=== PATIENT | female | born 1965 | race Caucasian/White ===

== ENCOUNTER 2019-02-16 08:11 | Day surgery (SDC) | payer BC ==
[2019-02-15 16:09] VITALS: BMI 19.1
[2019-02-16] VITALS (11 sets, daily range): BP systolic 118–135; BP diastolic 73–94; PULSE 64–82; RESP 11–20; Ht 157.5 cm; Wt 49.8 kg
[~2019-02-16] VITALS: Ht 157.5 cm; Wt 49.8 kg
[2019-02-16] MEDS ORDERED: SOD CHLORIDE 0.9% 1,000 ML IV SCH (10:00)
[2019-02-16] MEDS ORDERED: PROPOFOL 20 ML ONE (10:45)
[2019-02-16] MEDS ORDERED: LIDOCAINE 2% (SDV) 5 ML INJ ONE (10:45)
[2019-02-16] MEDS ORDERED: MEPERIDINE 100 MG INJ ONE (10:45)
[2019-02-16] MEDS ORDERED: CEFAZOLIN 1 GM INJ ONE (10:45)
[2019-02-16] MEDS ORDERED: METOCLOPRAMIDE 10 MG INJ ONE (10:45)
[2019-02-16] MEDS ORDERED: ONDANSETRON 4 MG INJ ONE (10:45)
[2019-02-16] MEDS ORDERED: BUPIVACAINE 0.25%/EPI (SDV) 10 ML INJ ONE (10:46)
[2019-02-16] MEDS ORDERED: HYDROCODONE/APAP (5/325) TAB PO PRN (11:00)
[2019-02-16] MEDS ORDERED: morphine 2 MG INJ IV PRN (11:00)
[2019-02-16] MEDS ORDERED: ACETAMINOPHEN 325 MG TAB PO PRN (11:00)
[2019-02-16] MEDS ORDERED: ONDANSETRON 4 MG INJ IV PRN ×2 (11:00→12:00)
[2019-02-16] MEDS ORDERED: OXYCODONE/ACETAMINOPHEN (5/325) TAB PO PRN ×2 (12:00)
[2019-02-16] MEDS ORDERED: FENTAnyl 50 MCG/ML VIAL IV PRN ×3 (12:00)
[2019-02-16] MEDS ORDERED: DIPHENHYDRAMINE 50 MG INJ IV PRN (12:00)
[2019-02-16] MEDS ORDERED: METOCLOPRAMIDE 10 MG INJ IV PRN (12:00)
[2019-02-16] MEDS ORDERED: MIDAZOLAM 1 MG/ML 2 ML INJ IV PRN (12:00)
[2019-02-16] MEDS ORDERED: HYDROmorphONE 1 MG/5 ML IV SYRINGE IV PRN ×3 (12:00)
[2019-02-16] MEDS ORDERED: MEPERIDINE 25 MG INJ IV PRN (12:00)
[2019-02-16] MEDS ORDERED: BACITRACIN/POLYMYXIN 28.35 GM OINT TOP ONE (12:21)
[2019-02-16] MEDS ORDERED: ROCURONIUM 50 MG INJ ONE (12:32)
[2019-02-16] MEDS ORDERED: SUCCINYLCHOLINE CHLORIDE 100 MG/5 ML SYG IV ONE (12:32)
[2019-02-16] MEDS ORDERED: EPHEDrine 25 MG/5 ML SYG ONE (14:31)
[2019-02-16] MEDS ORDERED: ATROPINE 1 MG/10 ML SYRINGE ONE (14:31)
[2019-02-16] MEDS ORDERED: GLYCOPYRROLATE 0.4 MG INJ ONE (14:32)
[2019-02-16] MEDS ORDERED: NEOSTIGMINE 3 MG/3 ML SYRINGE ONE (14:32)
== END 2019-02-16 14:37 | disposition home or self-care (01) ==
LOC: SDS 08:11
PROVIDERS: ATTEND Surgery Plastic and Reconstructive Surgery
DX: C44.311 Basal cell carcinoma of skin of nose (principal); L57.8 Other skin changes due to chronic exposure to nonionizing radiation
CPT/HCPCS: 11443; 15260; 84703; 88307; 88331; 88332; J0690; J1170; J2175; J2405; J2765; Z7512; Z7610; J0461; J2710